=== PATIENT | female | born 1955 | race African-American/Black ===

== ENCOUNTER 2016-09-19 21:23 | Emergency (ER) | payer OTHER, BC ==
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
[~2016-09-19 21:23] MED LIST: DILTIAZEM ER180 MG PO; FLEXERIL10 MG PO; HYDROCODONE/APA1 T16 PO; NORCO 5/325 TAB1 TAB PO; NORVASC PO; TRIAMTERENE-HC1 EAC1 PO; VICODIN 5/500 T1 TAB PO
== END 2016-09-19 23:20 | disposition home or self-care (01) ==
LOC: CFTX 21:23
DX: S13.4XXA Sprain of ligaments of cervical spine, initial encounter (principal); S23.3XXA Sprain of ligaments of thoracic spine, initial encounter; S33.5XXA Sprain of ligaments of lumbar spine, initial encounter; I50.9 Heart failure, unspecified; V49.00XA Driver injured in collision with unspecified motor vehicles in nontraffic accident, initial encounter
CPT/HCPCS: 72072; 72100; 72125; 73000; 99284